=== PATIENT | female | born 1995 | race Caucasian/White ===

== ENCOUNTER 2017-11-11 13:33 | Outpatient (CLI) | payer BC ==
[2017-11-11 15:23] LABS: FREE T4 (FREE THYROXINE) 0.8 ng/dL (0.6-1.6); THYROID STIMULATING HORMONE 0.72 uIu/mL (0.34-4.82)
[2017-11-11 15:38] LABS: BASOPHILS # (AUTO) 0.1 K/uL (0.0-0.2); BASOPHILS % (AUTO) 1.2 % (0.0-2.0); EOSINOPHILS # (AUTO) 0.2 K/uL (0.0-0.4); EOSINOPHILS % (AUTO) 2.2 % (0.0-4.0); HEMATOCRIT 45.2 % (36-48); HEMOGLOBIN 15.4 g/dL (12.0-16.0); LYMPHOCYTES # (AUTO) 2.5 K/uL (1.0-5.5); LYMPHOCYTES % (AUTO) 28.3 % (20.5-51.5); MEAN CORPUSCULAR HEMOGLOBIN 31 pg (27-31); MEAN CORPUSCULAR HGB CONC 34 % (32-36); MEAN CORPUSCULAR VOLUME 91 fL (79.0-98.0); MONOCYTES # (AUTO) 0.3 K/uL (0.0-1.0); MONOCYTES % (AUTO) 3.9 % (1.7-9.3); NEUTROPHILS # (AUTO) 5.8 K/uL (1.8-7.7); NEUTROPHILS % (AUTO) 64.4 % (40.0-70.0); PLATELET COUNT (AUTO) 294 K/uL (130-430); RED BLOOD CELL COUNT(AUTO) 4.95 MIL/uL (4.2-6.2); RED CELL DISTRIBUTION WIDTH 11.9 % (9.0-15.0); WHITE BLOOD COUNT (AUTO) 8.9 K/uL (4.5-11.0)
[2017-11-11 16:40] LABS: ERYTHROCYTE SEDIMENTATION RATE 3 MM/HR (0-20)
[2017-11-12 08:06] LABS: THYROID PEROXIDASE (TPO) AB 20 IU/mL (0-34); TRIIODOTHYRONINE (T3) 113 ng/dL (71-180)
== END 2017-11-11 20:04 | disposition home or self-care (01) ==
LOC: SLB 13:33
PROVIDERS: ATTEND General Practice
DX: J03.80 Acute tonsillitis due to other specified organisms (principal); E04.9 Nontoxic goiter, unspecified; I88.8 Other nonspecific lymphadenitis; R13.12 Dysphagia, oropharyngeal phase
CPT/HCPCS: 36415; 84439; 84443-TC; 84480; 85025; 85651-TC; 86140; 86376